=== PATIENT | male | born 1965 | race Hispanic/Latino ===

== ENCOUNTER 2020-05-30 21:06 | Emergency (ER) | payer SELFPAY ==
[~2020-05-30] VITALS: Ht 152.4 cm; Wt 70.0 kg
[2020-05-30 22:00] LABS: HEMATOCRIT 39.4 % (39.0-50.0); HEMOGLOBIN 13.2 g/dl (14.0-18.0); IMMATURE GRANULOCYTES 0.4 % (0.0-5.0); MEAN CELL VOLUME 87.4 fL CALC (80.0-100.0); MEAN CORPUSCULAR HGB 29.3 pG CALC (26.0-32.0); MEAN CORPUSCULAR HGB CONC 33.5 g/dL CAL (32.0-36.0); NEUT# 6.25 thou/uL (1.82-7.42); RED BLOOD COUNT 4.51 mill/uL (4.70-6.10); RED CELL DISTRI WIDTH 13.7 % (11.5-15.5)
[2020-05-30 22:52] VITALS: BP 124/77
== END 2020-05-30 22:53 | disposition home or self-care (01) | DRG 179 ==
LOC: ED 21:06
PROVIDERS: Family Medicine
DX: U07.1 COVID-19 (principal)